=== PATIENT | female | born 1985 | race African-American/Black ===

== ENCOUNTER 2017-07-03 16:59 | Emergency (ER) | payer SELFPAY, OTHER | END 2017-07-03 19:22 | disposition left against medical advice (07) | LOC: FTE 16:59 | DX: Z53.21 Procedure and treatment not carried out due to patient leaving prior to being seen by health care provider (principal) ==

== ENCOUNTER 2017-09-14 15:04 | Emergency (ER) | payer OTHER | END 2017-09-14 17:34 | disposition home or self-care (01) | LOC: FTE 15:04 | DX: S60.442A External constriction of right middle finger, initial encounter (principal); J45.909 Unspecified asthma, uncomplicated; J44.9 Chronic obstructive pulmonary disease, unspecified; I10 Essential (primary) hypertension; W49.04XA Ring or other jewelry causing external constriction, initial encounter; Y92.9 Unspecified place or not applicable; Z87.891 Personal history of nicotine dependence | CPT/HCPCS: 99283; Z7502 ==